=== PATIENT | male | born 1955 | race Caucasian/White ===

== ENCOUNTER 2017-04-26 10:40 | Emergency (ER) | payer MEDICAID, MEDICARE ==
[~2017-04-26] VITALS: Ht 172.7 cm; Wt 86.8 kg
[~2017-04-26 10:40] MED LIST: CALC-141 PO; FENT1PAT76 TP; FLUT1DIS IH; LUPRON; MONT10TA6 PO; VENL37.52 PO; ZOLE4VIA IV
[2017-04-26] MEDS ORDERED: SODIUM CHLORIDE FLUSH 10ML SYR IVF ONE (11:30)
[2017-04-26] MEDS ORDERED: ONDANSETRON 2MG/ML, 2ML IVPush ONE (11:30)
[2017-04-26] MEDS ORDERED: SODIUM CHLORIDE 0.9% 1,000ML IVBOLUS ONE (11:30)
[2017-04-26 11:42] LABS: INTERNATIONAL NORMALIZED RATIO 0.95 (0.93-1.1); PROTHROMBIN TIME 9.9 Seconds (9.6-11.5)
[2017-04-26 11:46] LABS: ALBUMIN 3.9 g/dL (3.4-5.0); ANION GAP 8 mmol/L (5-15); CALCIUM 8.6 mg/dL (8.5-10.1); CHLORIDE 107 mmol/L (98-107)
[2017-04-26 11:50] LABS: ALANINE AMINOTRANSFERASE 16 U/L (12-78); ALKALINE PHOSPHATASE 110 U/L (45-117); BILIRUBIN,TOTAL 0.3 mg/dL (0.2-1.0); CREATININE 0.87 mg/dL (0.7-1.3); TOTAL PROTEIN 8.3 g/dL (6.4-8.2)
[2017-04-26 11:55] LABS: MEAN CORPUSCULAR HGB CONC 34.4 g/dL (33.2-36.2); MEAN PLATELET VOLUME 6.8 fL (7.4-10.4); PLATELET COUNT 140 x10^3/uL (130-400); RED BLOOD COUNT 2.81 x10^6/uL (4.38-5.82); RED CELL DISTRIBUTION WIDTH 15.4 % (9.4-14.8)
[2017-04-26 12:26] LABS: MD YES
[2017-04-26 12:40] LABS: BANDS%(MANUAL) 28 % (0-7); BASOS#(MANUAL) 0.04 x10^3/uL (0-0.1); BASOS% (MANUAL) 3 % (0-1); EOS#(MANUAL) 0.01 x10^3/uL (0.0-0.4); EOS% (MANUAL) 1 % (1-7); METAMYELOCYTES# (MANUAL) 0.01 x10^3/uL (0-0); METAMYELOCYTES% (MANUAL) 1 % (0-1); MONOS% (MANUAL) 8 % (2-9); REACTIVE LYMPHS # (MANUAL) 0.03 x10^3/uL (0-0); REACTIVE LYMPHS % (MANUAL) 2 % (0-0); SEG#(MANUAL) 0.31 x10^3/uL (1.8-6.8); SEGS% (MANUAL) 24 % (42-75)
[2017-04-26 12:45] LABS: BAND#(MANUAL) 0.38 x10^3/uL; LYMPH#(MANUAL) 0.43 x10^3/uL (1-3.4); LYMPHS% (MANUAL) 33 % (22-44)
[2017-04-26 12:47] LABS: ANISOCYTOSIS 1+; POLYCHROMASIA 1+; STOMATOCYTES 1+; TEAR DROPS 1+
[2017-04-26 12:48] LABS: HYPOCHROMIA 1+
[2017-04-26 12:49] LABS: <PLATELET ESTIMATE> ADEQUATE
[2017-04-26] MEDS ORDERED: HYDR-3237 PO (12:49)
[2017-04-26] MEDS ORDERED: OMEP-110 PO (12:49)
[2017-04-26] MEDS ORDERED: hydromorphone (12:49)
[2017-04-26] MEDS ORDERED: PARO-28 PO (12:49)
[2017-04-26 12:50] LABS: <PLT MORPHOLOGY> NORMAL PLT MORPH
[2017-04-26 13:05] LABS: CULTURE INDICATED? NO; MICROSCOPIC AUTO
[2017-04-26 15:17] VITALS: BP 95/65
[2017-04-26 15:32] VITALS: BP 97/60
[2017-04-26 16:33] VITALS: BP 114/62
== END 2017-04-26 16:41 | disposition home or self-care (01) ==
LOC: ED 16:20
DX: C61 Malignant neoplasm of prostate (principal); C79.51 Secondary malignant neoplasm of bone; D63.0 Anemia in neoplastic disease; D70.9 Neutropenia, unspecified; R79.1 Abnormal coagulation profile; R53.1 Weakness
CPT/HCPCS: 36415; 36430; 71045; 80053; 81001; 83605; 85025; 85610; 86850; 86900; 86923; 87040; 93005; 99285; P9040

== ENCOUNTER 2017-08-11 00:42 | Inpatient (IN) | payer MEDICARE ==
[~2017-08-11] VITALS: Ht 172.7 cm; Wt 89.7 kg
[~2017-08-11 00:42] MED LIST changes: +HYDR-3237 PO; +HYDR-3240 PO; +OMEP-110 PO; +PARO-28 PO; +hydromorphone
[2017-08-11] MEDS ORDERED: PROMETHAZINE 25 MG/ML, 1ML IM STA (01:27)
[2017-08-11] MEDS ORDERED: HYDROmorphone 1 MG/ML, 1ML IV STA (01:27)
[2017-08-11] MEDS ORDERED: HYDROmorphone 2 MG/ML, 1ML ONE ×2 (01:30→03:27)
[2017-08-11] MEDS ORDERED: PROMETHAZINE 25 MG/ML, 1ML ONE (01:30)
[2017-08-11] MEDS ORDERED: SODIUM CHLORIDE FLUSH 10ML SYR IVF ONE (01:30)
[2017-08-11 02:02] LABS: MEAN CORPUSCULAR HEMOGLOBIN 31.4 pg (27.5-34.5); MEAN CORPUSCULAR VOLUME 92.4 fL (81-97); MEAN PLATELET VOLUME 6.8 fL (7.4-10.4); PLATELET COUNT 132 x10^3/uL (130-400); RED BLOOD COUNT 2.47 x10^6/uL (4.38-5.82); RED CELL DISTRIBUTION WIDTH 19.6 % (9.4-14.8)
[2017-08-11 02:09] LABS: ALANINE AMINOTRANSFERASE 21 U/L (12-78); ALBUMIN 3.3 g/dL (3.4-5.0); ANION GAP 6 mmol/L (5-15); CALCIUM 8.9 mg/dL (8.5-10.1); CHLORIDE 105 mmol/L (98-107); CREATININE 0.98 mg/dL (0.7-1.3)
[2017-08-11 02:11] LABS: ALKALINE PHOSPHATASE 114 U/L (45-117); BILIRUBIN,TOTAL 0.2 mg/dL (0.2-1.0); TOTAL PROTEIN 7.6 g/dL (6.4-8.2)
[2017-08-11 02:22] LABS: BASOPHILS # (AUTO) 0.01 x10^3/uL (0-0.1); BASOPHILS % (AUTO) 0 % (0-1); EOSINOPHILS # (AUTO) 0.06 x10^3/uL (0-0.4); EOSINOPHILS % (AUTO) 3 % (1-7); LYMPHOCYTES # (AUTO) 0.61 x10^3/uL (1-3.4); LYMPHOCYTES % (AUTO) 26 % (22-44); MD MORPH REVIEW ONLY; MONOCYTES # (AUTO) 0.34 x10^3/uL (0.2-0.8); MONOCYTES % (AUTO) 14 % (2-9); NEUTROPHILS # (AUTO) 1.37 x10^3/uL (1.8-6.8); NEUTROPHILS % (AUTO) 57 % (42-75)
[2017-08-11 02:24] LABS: ANISOCYTOSIS 1+; POLYCHROMASIA 1+; TEAR DROPS 1+
[2017-08-11 02:26] LABS: <PLATELET ESTIMATE> ADEQUATE; <PLT MORPHOLOGY> NORMAL PLT MORPH
[2017-08-11] MEDS ORDERED: ONDANSETRON 2MG/ML, 2ML IVPush PRN (03:00)
[2017-08-11] MEDS ORDERED: HYDROmorphone 1 MG/ML, 1ML IVPush PRN (03:00)
[2017-08-11 03:28] VITALS: BP 132/84
[2017-08-11 03:54] VITALS: BP 132/84
[2017-08-11] MEDS ORDERED: ZOLPIDEM 5MG TABLET PO PRN (05:30)
[2017-08-11] MEDS ORDERED: BISACODYL 10 MG SUPP PR PRN (05:30)
[2017-08-11] MEDS ORDERED: HYDROcodone/APAP 5/325 TABLET PO PRN (06:00)
[2017-08-11] MEDS ORDERED: IBUPROFEN 200 MG TABLET PO SCH (06:00)
[2017-08-11] MEDS: OxyconTIN ER 10 MG TAB.ER PO SCH ×2 (06:20→17:59)
[2017-08-11] MEDS: ENOXAPARIN 40 MG/0.4 ML SQ SCH (06:22)
[2017-08-11 07:04] VITALS: BP 112/70
[2017-08-11 07:33] LABS: BAND#(MANUAL) 0.14 x10^3/uL; BANDS%(MANUAL) 6 % (0-7); EOS#(MANUAL) 0.02 x10^3/uL (0.0-0.4); EOS% (MANUAL) 1 % (1-7); LYMPH#(MANUAL) 0.58 x10^3/uL (1-3.4); LYMPHS% (MANUAL) 24 % (22-44); MONOS#(MANUAL) 0.34 x10^3/uL (0.3-2.7); MONOS% (MANUAL) 14 % (2-9); SEG#(MANUAL) 1.32 x10^3/uL (1.8-6.8); SEGS% (MANUAL) 55 % (42-75)
[2017-08-11] MEDS ORDERED: OMNIPAQUE 350 MG/ML, 100ML BOTTLE ONE (09:54)
[2017-08-11] MEDS: SENNA/DOCUSATE TABLET PO SCH (11:07)
[2017-08-11] MEDS: OMEPRAZOLE 20 MG CAPSULE.DR PO SCH (11:07)
[2017-08-11] MEDS: MONTELUKAST 10 MG TABLET PO SCH (11:08)
[2017-08-11] MEDS: OXYcodone/APAP 7.5/325MG TABLET PO PRN ×4 (11:19→21:40)
[2017-08-11] MEDS: morphine SULFATE 10 MG/ML, 1ML IVPush PRN ×2 (14:12→16:04)
[2017-08-11 14:47] VITALS: BP 121/69
[2017-08-11] MEDS: DOCUSATE 100 MG CAPSULE PO PRN (18:06)
[2017-08-11 19:20] VITALS: BP 110/68
[2017-08-12 01:19] VITALS: BP 134/71
[2017-08-12] MEDS: morphine SULFATE 10 MG/ML, 1ML IVPush PRN ×4 (01:30→23:12)
[2017-08-12 05:10] VITALS: BP 126/72
[2017-08-12] MEDS ORDERED: ALBUTEROL/IPRATROPIUM 2.5MG/0.5MG, 3 ML ONE (05:30)
[2017-08-12 05:47] LABS: CHLORIDE 101 mmol/L (98-107)
[2017-08-12 05:49] LABS: MEAN CORPUSCULAR HEMOGLOBIN 31.1 pg (27.5-34.5); MEAN CORPUSCULAR HGB CONC 33.6 g/dL (33.2-36.2); MEAN CORPUSCULAR VOLUME 92.4 fL (81-97); MEAN PLATELET VOLUME 6.6 fL (7.4-10.4); PLATELET COUNT 127 x10^3/uL (130-400); RED BLOOD COUNT 2.45 x10^6/uL (4.38-5.82); RED CELL DISTRIBUTION WIDTH 19.5 % (9.4-14.8)
[2017-08-12] MEDS: ENOXAPARIN 40 MG/0.4 ML SQ SCH (05:51)
[2017-08-12] MEDS: OxyconTIN ER 10 MG TAB.ER PO SCH (05:51)
[2017-08-12 05:56] LABS: ANION GAP 7 mmol/L (5-15); CALCIUM 9.3 mg/dL (8.5-10.1); CREATININE 0.71 mg/dL (0.7-1.3)
[2017-08-12 06:14] LABS: MD YES
[2017-08-12 06:18] LABS: BAND#(MANUAL) 0.17 x10^3/uL; BANDS%(MANUAL) 8 % (0-7); EOS#(MANUAL) 0.08 x10^3/uL (0.0-0.4); EOS% (MANUAL) 4 % (1-7); LYMPH#(MANUAL) 0.69 x10^3/uL (1-3.4); LYMPHS% (MANUAL) 33 % (22-44); METAMYELOCYTES# (MANUAL) 0.04 x10^3/uL (0-0); METAMYELOCYTES% (MANUAL) 2 % (0-1); MONOS#(MANUAL) 0.17 x10^3/uL (0.3-2.7); MONOS% (MANUAL) 8 % (2-9); MYELOCYTES# (MANUAL) 0.06 x10^3/uL (0-0); MYELOCYTES% (MANUAL) 3 % (0-0); SEG#(MANUAL) 0.88 x10^3/uL (1.8-6.8); SEGS% (MANUAL) 42 % (42-75)
[2017-08-12 06:19] LABS: <PLATELET ESTIMATE> DECREASED; <PLT MORPHOLOGY> NORMAL PLT MORPH; ANISOCYTOSIS 1+; POLYCHROMASIA 1+; TEAR DROPS 1+
[2017-08-12 06:50] VITALS: BP 130/65
[2017-08-12 06:56] VITALS: BP 117/70
[2017-08-12] MEDS: ALBUTEROL/IPRATROPIUM 2.5MG/0.5MG, 3 ML NPPB SCH ×4 (07:00→20:00)
[2017-08-12] MEDS: OXYcodone/APAP 7.5/325MG TABLET PO PRN ×3 (08:03→19:45)
[2017-08-12] MEDS: SENNA/DOCUSATE TABLET PO SCH (08:12)
[2017-08-12] MEDS: MONTELUKAST 10 MG TABLET PO SCH ×2 (08:12→08:14)
[2017-08-12] MEDS: OMEPRAZOLE 20 MG CAPSULE.DR PO SCH (08:12)
[2017-08-12] MEDS ORDERED: POLYETHYLENE GLYCOL 17 GM PACKET PO ONE (09:30)
[2017-08-12] MEDS ORDERED: OxyconTIN ER 10 MG TAB.ER PO ONE (10:00)
[2017-08-12 12:24] VITALS: BP 111/72
[2017-08-12] MEDS ORDERED: DEXAMETHASONE 4 MG TABLET PO SCH (18:00)
[2017-08-12] MEDS ORDERED: OxyconTIN ER 20 MG TAB.ER PO SCH (18:00)
[2017-08-12 18:55] VITALS: BP 117/71
[2017-08-12] MEDS: DOCUSATE 100 MG CAPSULE PO PRN (19:45)
[2017-08-12] MEDS: ONDANSETRON ODT 4 MG PO PRN (19:45)
[2017-08-12] MEDS ORDERED: MORPHINE SULFATE 4 MG/ML, 1ML ONE (23:57)
[2017-08-13] MEDS: morphine SULFATE 10 MG/ML, 1ML IVPush PRN (00:01)
[2017-08-13 01:46] VITALS: BP 119/74
[2017-08-13 06:42] VITALS: BP 117/64
[2017-08-13] MEDS: ALBUTEROL/IPRATROPIUM 2.5MG/0.5MG, 3 ML NPPB SCH (07:20)
[2017-08-13] MEDS: ENOXAPARIN 40 MG/0.4 ML SQ SCH ×2 (08:10→12:30)
[2017-08-13] MEDS: DEXAMETHASONE 4 MG TABLET PO SCH ×2 (08:11→20:16)
[2017-08-13] MEDS: DOCUSATE 100 MG CAPSULE PO PRN ×2 (08:11→20:17)
[2017-08-13] MEDS: SENNA/DOCUSATE TABLET PO SCH (08:11)
[2017-08-13] MEDS: OMEPRAZOLE 20 MG CAPSULE.DR PO SCH (08:11)
[2017-08-13] MEDS: OxyconTIN ER 20 MG TAB.ER PO SCH ×2 (08:11→20:17)
[2017-08-13] MEDS: MONTELUKAST 10 MG TABLET PO SCH (08:20)
[2017-08-13] MEDS: OXYcodone/APAP 7.5/325MG TABLET PO SCH ×4 (08:29→22:36)
[2017-08-13] MEDS ORDERED: ALBUTEROL/IPRATROPIUM 2.5MG/0.5MG, 3 ML NPPB PRN (09:00)
[2017-08-13 09:10] LABS: ANION GAP 5 mmol/L (5-15); CALCIUM 9.5 mg/dL (8.5-10.1); CHLORIDE 100 mmol/L (98-107); CREATININE 0.82 mg/dL (0.7-1.3)
[2017-08-13 09:59] LABS: MEAN CORPUSCULAR HEMOGLOBIN 31.6 pg (27.5-34.5); MEAN CORPUSCULAR HGB CONC 34.4 g/dL (33.2-36.2); MEAN CORPUSCULAR VOLUME 91.9 fL (81-97); MEAN PLATELET VOLUME 6.5 fL (7.4-10.4); PLATELET COUNT 147 x10^3/uL (130-400); RED CELL DISTRIBUTION WIDTH 20.2 % (9.4-14.8)
[2017-08-13 10:01] LABS: MD YES
[2017-08-13 10:05] LABS: BAND#(MANUAL) 0.21 x10^3/uL; BANDS%(MANUAL) 11 % (0-7); EOS#(MANUAL) 0.04 x10^3/uL (0.0-0.4); EOS% (MANUAL) 2 % (1-7); LYMPH#(MANUAL) 0.51 x10^3/uL (1-3.4); LYMPHS% (MANUAL) 27 % (22-44); MONOS#(MANUAL) 0.17 x10^3/uL (0.3-2.7); MONOS% (MANUAL) 9 % (2-9)
[2017-08-13 10:07] LABS: METAMYELOCYTES# (MANUAL) 0.02 x10^3/uL (0-0); METAMYELOCYTES% (MANUAL) 1 % (0-1); SEG#(MANUAL) 0.95 x10^3/uL (1.8-6.8); SEGS% (MANUAL) 50 % (42-75)
[2017-08-13 10:08] LABS: ANISOCYTOSIS 1+; POLYCHROMASIA 1+
[2017-08-13 10:09] LABS: <PLATELET ESTIMATE> ADEQUATE; <PLT MORPHOLOGY> NORMAL PLT MORPH
[2017-08-13] MEDS: ONDANSETRON ODT 4 MG PO PRN ×2 (11:10→19:13)
[2017-08-13] MEDS ORDERED: METHYLNALTREXONE 12 MG/0.6 ML SQ ONE (11:30)
[2017-08-13 12:21] VITALS: BP 116/60
[2017-08-13 19:38] VITALS: BP 121/68
[2017-08-14 03:13] VITALS: BP 122/67
[2017-08-14] MEDS: OXYcodone/APAP 7.5/325MG TABLET PO SCH ×2 (03:13→08:26)
[2017-08-14] MEDS: ONDANSETRON ODT 4 MG PO PRN (06:45)
[2017-08-14] MEDS ORDERED: ONDA4TAB13 PO (06:59)
[2017-08-14] MEDS ORDERED: OXYC20TA42 PO (06:59)
[2017-08-14] MEDS ORDERED: DEXA4TAB66 PO (06:59)
[2017-08-14] MEDS ORDERED: OXYC1TAB8 PO (06:59)
[2017-08-14 07:00] VITALS: BP 114/73
[2017-08-14] MEDS ORDERED: OxyconTIN ER 10 MG TAB.ER ONE (08:22)
[2017-08-14] MEDS: OxyconTIN ER 20 MG TAB.ER PO SCH (08:26)
[2017-08-14] MEDS: DEXAMETHASONE 4 MG TABLET PO SCH (08:26)
[2017-08-14] MEDS: MONTELUKAST 10 MG TABLET PO SCH (08:26)
[2017-08-14] MEDS: OMEPRAZOLE 20 MG CAPSULE.DR PO SCH (08:26)
[2017-08-14] MEDS: SENNA/DOCUSATE TABLET PO SCH (08:26)
[2017-08-14] MEDS: ENOXAPARIN 40 MG/0.4 ML SQ SCH (08:29)
[2017-08-14] MEDS ORDERED: LACTULOSE 20 GM/30 ML UDC PO ONE (09:00)
== END 2017-08-14 11:16 | disposition home or self-care (01) | DRG 947 ==
LOC: ED 02:37 → EDIP 02:49 → 3NW 03:18
PROVIDERS: ADMIT Family Medicine; ATTEND Family Medicine
DX: G89.3 Neoplasm related pain (acute) (chronic) (principal); D61.810 Antineoplastic chemotherapy induced pancytopenia; C79.51 Secondary malignant neoplasm of bone; C61 Malignant neoplasm of prostate; D63.0 Anemia in neoplastic disease; D63.8 Anemia in other chronic diseases classified elsewhere; T40.2X5A Adverse effect of other opioids, initial encounter; K59.03 Drug induced constipation; K59.09 Other constipation
CPT/HCPCS: 36415; 72132; 74177; 80048; 80053; 85025; 86850; 86900; 94640; 96372; 96374; J1170; J1650; J2550; J7620; Q0162; Q9967; J2270

== ENCOUNTER → 2018-02-28 | Outpatient (CLI) | payer MEDICARE ==
[~2018-02-28] MED LIST changes: +DEXA4TAB66 PO; +OMNIPAQUE 350 MG/ML, 100ML BOTTLE ONE; +ONDA4TAB13 PO; +OXYC1TAB8 PO; +OXYC20TA42 PO
== END | disposition home or self-care (01) ==
LOC: RAD 12:14
PROVIDERS: ATTEND Internal Medicine Gastroenterology
DX: K62.89 Other specified diseases of anus and rectum (principal)
CPT/HCPCS: 71260; 74177; Q9967

== ENCOUNTER 2018-07-23 14:35 | Outpatient (CLI) | payer MEDICARE ==
[~2018-07-23 14:35] MED LIST changes: -OMNIPAQUE 350 MG/ML, 100ML BOTTLE ONE
[2018-07-23 15:41] LABS: ALANINE AMINOTRANSFERASE 14 U/L (12-78); ALBUMIN 3.9 g/dL (3.4-5.0); ANION GAP 6 mmol/L (5-15); BASOPHILS # (AUTO) 0.01 x10^3/uL (0-0.1); BASOPHILS % (AUTO) 0 % (0-1); CALCIUM 8.9 mg/dL (8.5-10.1); CHLORIDE 111 mmol/L (98-107); CREATININE 0.84 mg/dL (0.7-1.3); EOSINOPHILS # (AUTO) 0.08 x10^3/uL (0-0.4); EOSINOPHILS % (AUTO) 3 % (1-7); LYMPHOCYTES # (AUTO) 0.89 x10^3/uL (1-3.4); LYMPHOCYTES % (AUTO) 28 % (22-44); MD NO; MEAN CORPUSCULAR HEMOGLOBIN 30.7 pg (27.5-34.5); MEAN CORPUSCULAR HGB CONC 32.8 g/dL (33.2-36.2); MEAN CORPUSCULAR VOLUME 93.7 fL (81-97); MEAN PLATELET VOLUME 5.9 fL (7.4-10.4); MONOCYTES % (AUTO) 10 % (2-9); NEUTROPHILS # (AUTO) 1.85 x10^3/uL (1.8-6.8); NEUTROPHILS % (AUTO) 59 % (42-75); PLATELET COUNT 308 x10^3/uL (130-400); RED BLOOD COUNT 3.38 x10^6/uL (4.38-5.82); RED CELL DISTRIBUTION WIDTH 15.8 % (9.4-14.8)
[2018-07-23 15:44] LABS: ALKALINE PHOSPHATASE 238 U/L (45-117); BILIRUBIN,TOTAL 0.2 mg/dL (0.2-1.0); TOTAL PROTEIN 7.9 g/dL (6.4-8.2)
[2018-07-23] MEDS ORDERED: ABIR250T PO (15:59)
[2018-07-23] MEDS ORDERED: MONT10TA9 PO (15:59)
[2018-07-23] MEDS ORDERED: OMEP20TA62 PO (15:59)
[2018-07-23] MEDS ORDERED: CALC-558 PO (15:59)
[2018-07-23] MEDS ORDERED: PARO20TA4 PO (15:59)
[2018-07-23] MEDS ORDERED: PRED5TAB PO (15:59)
== END 2018-07-23 23:59 | disposition home or self-care (01) ==
LOC: STAR 14:35
PROVIDERS: ATTEND Surgery
DX: Z01.818 Encounter for other preprocedural examination (principal); C20 Malignant neoplasm of rectum
CPT/HCPCS: 36415; 80053; 85025; 93005

== ENCOUNTER 2018-07-30 06:04 | Inpatient (IN) | payer MEDICARE ==
[~2018-07-30] VITALS: Ht 172.7 cm; Wt 88.8 kg
[~2018-07-30 06:04] MED LIST changes: +ABIR250T PO; +CALC-558 PO; +MONT10TA9 PO; +OMEP20TA62 PO; +PARO20TA4 PO; +PRED5TAB PO
[2018-07-30] MEDS ORDERED: LACTATED RINGERS 1,000 ML IV SCH (06:58)
[2018-07-30] MEDS ORDERED: BUPIVACAINE/PF 0.5% ONE (07:20)
[2018-07-30] MEDS ORDERED: INDOCYANINE GREEN 25 MG VIAL ONE (07:21)
[2018-07-30 07:23] VITALS: BP 136/74
[2018-07-30] MEDS ORDERED: SCOPOLAMINE PATCH, 1.5MG PATCH.TD72 TD ONE (07:40)
[2018-07-30] MEDS ORDERED: GABAPENTIN 300 MG CAPSULE ONE (07:40)
[2018-07-30] MEDS ORDERED: MIDAZOLAM 1 MG/ML, 2ML ONE (07:51)
[2018-07-30] MEDS ORDERED: FENTANYL PF 250 MCG/5ML ONE (07:51)
[2018-07-30] MEDS ORDERED: PROPOFOL 10 MG/ML, 20ML ONE (07:52)
[2018-07-30] MEDS ORDERED: LIDOCAINE-MPF 2% ,5ML ONE (07:52)
[2018-07-30] MEDS ORDERED: ROCURONIUM 10MG/ML,5ML ONE (07:52)
[2018-07-30] MEDS ORDERED: ROPIvacaine/PF 0.5%, 30 ML ONE ×2 (07:55)
[2018-07-30] MEDS ORDERED: CEFOTETAN 2 GM ONE (08:22)
[2018-07-30] MEDS ORDERED: PHENYLEPHRINE 10 MG/ML ONE (08:22)
[2018-07-30] MEDS ORDERED: DEXAMETHASONE 4 MG/ML, 1ML ONE ×2 (08:46)
[2018-07-30] MEDS ORDERED: ONDANSETRON 2MG/ML, 2ML ONE ×2 (10:12)
[2018-07-30] MEDS ORDERED: ALBUTEROL SULFATE 2.5 MG/3 ML NPPB PRN (10:30)
[2018-07-30] MEDS ORDERED: MEPERIDINE/PF 25MG/0.5ML IVPush PRN (10:30)
[2018-07-30] MEDS ORDERED: FENTANYL PF 100 MCG/2ML IV PRN (10:30)
[2018-07-30] MEDS ORDERED: OXYcodone 5 MG/5 ML ORAL.SOL UDC PO PRN (10:30)
[2018-07-30] MEDS ORDERED: hydrALAzine 20 MG/ML, 1ML IV PRN (10:30)
[2018-07-30] MEDS ORDERED: PROMETHAZINE 25 MG/ML, 1ML IV PRN (10:30)
[2018-07-30] MEDS ORDERED: HALOPERIDOL 5 MG/ML IV PRN (10:30)
[2018-07-30] MEDS ORDERED: MEPERIDINE/PF 50 MG/ML ONE (10:38)
[2018-07-30] MEDS ORDERED: SUGAMMADEX 200 MG/2 ML IVPush ONE (10:51)
[2018-07-30] MEDS ORDERED: OXYcodone 5 MG/5 ML ORAL.SOL UDC ONE (11:30)
[2018-07-30] MEDS ORDERED: HYDROmorphone 2 MG/ML, 1ML ONE (11:30)
[2018-07-30] MEDS: HYDROmorphone 2 MG/ML, 1ML IVPush PRN ×3 (11:35→12:13)
[2018-07-30 14:00] VITALS: BP 136/72
[2018-07-30] MEDS ORDERED: OXYcodone IR 5MG TABLET PO PRN (14:30)
[2018-07-30] MEDS ORDERED: SCOPOLAMINE PATCH, 1.5MG PATCH.TD72 TD PRN (15:00)
[2018-07-30] MEDS ORDERED: CALCIUM CARBONATE 500 MG TAB.CHEW PO PRN (15:00)
[2018-07-30] MEDS ORDERED: HALOPERIDOL 5 MG/ML IVPush PRN (15:00)
[2018-07-30] MEDS ORDERED: ONDANSETRON 2MG/ML, 2ML IV PRN (15:00)
[2018-07-30] MEDS ORDERED: DEXAMETHASONE 4 MG/ML, 1ML IVPush PRN (15:00)
[2018-07-30] MEDS ORDERED: LORazepam 1MG TABLET PO PRN (15:00)
[2018-07-30] MEDS ORDERED: DIPHENHYDRAMINE 50 MG/ML, 1ML IVPush PRN (15:00)
[2018-07-30] MEDS ORDERED: LORazepam 2 MG/ML, 1ML IVPush PRN (15:00)
[2018-07-30] MEDS ORDERED: DIPHENHYDRAMINE 25 MG CAPSULE PO PRN (15:00)
[2018-07-30] MEDS ORDERED: MORPHINE SULFATE 4 MG/ML, 1ML IVPush PRN (15:00)
[2018-07-30] MEDS: IBUPROFEN 800 MG TABLET PO SCH ×2 (15:30→20:56)
[2018-07-30] MEDS: ACETAMINOPHEN 500 MG TABLET PO SCH ×2 (15:30→20:56)
[2018-07-30] MEDS: D5%-0.45NACL+KCL 20MEQ 1,000 ML IV SCH (15:30)
[2018-07-30 19:10] VITALS: BP 134/79
[2018-07-30] MEDS ORDERED: TRAZODONE 50MG TABLET PO PRN (21:00)
[2018-07-30 23:50] VITALS: BP 112/67
[2018-07-31] MEDS: ACETAMINOPHEN 500 MG TABLET PO SCH ×4 (03:05→20:55)
[2018-07-31 03:27] VITALS: BP 110/57
[2018-07-31 03:48] LABS: BASOPHILS % (AUTO) 0 % (0-1); EOSINOPHILS % (AUTO) 0 % (1-7); LYMPHOCYTES # (AUTO) 0.63 x10^3/uL (1-3.4); LYMPHOCYTES % (AUTO) 15 % (22-44); MD NO; MEAN CORPUSCULAR HEMOGLOBIN 30.5 pg (27.5-34.5); MEAN CORPUSCULAR HGB CONC 32.1 g/dL (33.2-36.2); MEAN CORPUSCULAR VOLUME 94.9 fL (81-97); MEAN PLATELET VOLUME 6.2 fL (7.4-10.4); MONOCYTES # (AUTO) 0.34 x10^3/uL (0.2-0.8); MONOCYTES % (AUTO) 8 % (2-9); NEUTROPHILS # (AUTO) 3.23 x10^3/uL (1.8-6.8); NEUTROPHILS % (AUTO) 77 % (42-75); PLATELET COUNT 269 x10^3/uL (130-400); RED BLOOD COUNT 3.03 x10^6/uL (4.38-5.82); RED CELL DISTRIBUTION WIDTH 15.1 % (9.4-14.8)
[2018-07-31 03:51] LABS: ANION GAP 6 mmol/L (5-15); CALCIUM 8.3 mg/dL (8.5-10.1); CHLORIDE 109 mmol/L (98-107); CREATININE 1.02 mg/dL (0.7-1.3)
[2018-07-31] MEDS: D5%-0.45NACL+KCL 20MEQ 1,000 ML IV SCH ×2 (05:18→19:36)
[2018-07-31] MEDS: ABIRATERONE ACETATE 500 MG HOMEMEDPO SCH (06:40)
[2018-07-31] MEDS: OMEPRAZOLE 20 MG CAPSULE.DR PO SCH (07:23)
[2018-07-31] MEDS: IBUPROFEN 800 MG TABLET PO SCH ×3 (07:23→20:55)
[2018-07-31] MEDS: MONTELUKAST 10 MG TABLET PO SCH (07:23)
[2018-07-31] MEDS: PAROXETINE 20 MG TABLET PO SCH (07:23)
[2018-07-31 07:27] VITALS: BP 137/75
[2018-07-31] MEDS: ENOXAPARIN 40 MG/0.4 ML SQ SCH (12:23)
[2018-07-31 12:26] VITALS: BP 130/58
[2018-07-31 19:16] VITALS: BP 130/65
[2018-08-01 00:56] VITALS: BP 128/68
[2018-08-01] MEDS: ACETAMINOPHEN 500 MG TABLET PO SCH ×2 (02:55→08:33)
[2018-08-01 03:15] LABS: BASOPHILS # (AUTO) 0.02 x10^3/uL (0-0.1); BASOPHILS % (AUTO) 1 % (0-1); EOSINOPHILS # (AUTO) 0.07 x10^3/uL (0-0.4); EOSINOPHILS % (AUTO) 2 % (1-7); LYMPHOCYTES # (AUTO) 1.03 x10^3/uL (1-3.4); LYMPHOCYTES % (AUTO) 29 % (22-44); MD NO; MEAN CORPUSCULAR HEMOGLOBIN 31.3 pg (27.5-34.5); MEAN CORPUSCULAR HGB CONC 32.7 g/dL (33.2-36.2); MEAN CORPUSCULAR VOLUME 95.8 fL (81-97); MEAN PLATELET VOLUME 6.4 fL (7.4-10.4); MONOCYTES % (AUTO) 8 % (2-9); NEUTROPHILS # (AUTO) 2.17 x10^3/uL (1.8-6.8); NEUTROPHILS % (AUTO) 61 % (42-75); PLATELET COUNT 261 x10^3/uL (130-400); RED BLOOD COUNT 2.96 x10^6/uL (4.38-5.82); RED CELL DISTRIBUTION WIDTH 15.2 % (9.4-14.8)
[2018-08-01 03:21] LABS: ANION GAP 5 mmol/L (5-15); CALCIUM 8.3 mg/dL (8.5-10.1); CHLORIDE 112 mmol/L (98-107); CREATININE 0.78 mg/dL (0.7-1.3)
[2018-08-01] MEDS: ABIRATERONE ACETATE 500 MG HOMEMEDPO SCH (06:28)
[2018-08-01 07:54] VITALS: BP 136/67
[2018-08-01] MEDS: PAROXETINE 20 MG TABLET PO SCH (08:33)
[2018-08-01] MEDS: MONTELUKAST 10 MG TABLET PO SCH (08:33)
[2018-08-01] MEDS: IBUPROFEN 800 MG TABLET PO SCH (08:33)
[2018-08-01] MEDS: OMEPRAZOLE 20 MG CAPSULE.DR PO SCH (08:33)
[2018-08-01] MEDS: D5%-0.45NACL+KCL 20MEQ 1,000 ML IV SCH (08:34)
[2018-08-01] MEDS: ENOXAPARIN 40 MG/0.4 ML SQ SCH (10:28)
[2018-08-01 10:37] VITALS: BP 145/69
[2018-08-01] MEDS ORDERED: OXYC-302 PO (12:00)
[2018-08-01] MEDS ORDERED: ENOX40SY4 SQ (12:01)
== END 2018-08-01 14:22 | disposition home health service (06) | DRG 330 ==
LOC: ORIP 06:04 → 4NOR 14:12 → DCLOUNGE 08-01 13:58
PROVIDERS: ADMIT Surgery; ATTEND Surgery
PROC: 0D1B4Z4 Bypass Ileum to Cutaneous, Percutaneous Endoscopic Approach (ICD-10-PCS; 2018-07-30)
PROC: 3E0T3BZ Introduction of Anesthetic Agent into Peripheral Nerves and Plexi, Percutaneous Approach (ICD-10-PCS; 2018-07-30)
PROC: 8E0W4CZ Robotic Assisted Procedure of Trunk Region, Percutaneous Endoscopic Approach (ICD-10-PCS; 2018-07-30)
PROC: 0DBP4ZZ Excision of Rectum, Percutaneous Endoscopic Approach (ICD-10-PCS; principal; 2018-07-30 08:00)
DX: C78.5 Secondary malignant neoplasm of large intestine and rectum (principal); C79.51 Secondary malignant neoplasm of bone; C61 Malignant neoplasm of prostate; J45.909 Unspecified asthma, uncomplicated; K21.9 Gastro-esophageal reflux disease without esophagitis; F32.9 Major depressive disorder, single episode, unspecified; Z83.3 Family history of diabetes mellitus; Z82.49 Family history of ischemic heart disease and other diseases of the circulatory system; Z80.1 Family history of malignant neoplasm of trachea, bronchus and lung
CPT/HCPCS: 36415; 80048; 85025; 86850; 86900; 88305; 88309; C1729; G0378; J1100; J1170; J1650; J2175; J2250; J2405; J2704; J2795; J3010; J2370; J3480; J3490; J7120; J7512

== ENCOUNTER → 2018-08-07 | Outpatient (CLI) | payer MEDICARE ==
[~2018-08-07] MED LIST changes: +ENOX40SY4 SQ; +OMNIPAQUE 350 MG/ML, 100ML BOTTLE ONE; +OXYC-302 PO
== END | disposition home or self-care (01) ==
LOC: PETCFH 08:01
PROVIDERS: ATTEND Specialist
DX: C41.9 Malignant neoplasm of bone and articular cartilage, unspecified (principal); C61 Malignant neoplasm of prostate; C21.8 Malignant neoplasm of overlapping sites of rectum, anus and anal canal
CPT/HCPCS: 71260; 74177; 78306; A9503; Q9967

== ENCOUNTER → 2018-08-08 | Outpatient (CLI) | payer MEDICARE ==
[~2018-08-08] MED LIST changes: +GADOBUTROL 10 MMOL/10 ML PFS ONE; -OMNIPAQUE 350 MG/ML, 100ML BOTTLE ONE
== END | disposition home or self-care (01) ==
LOC: CFH 09:37
PROVIDERS: ATTEND Specialist
DX: C79.51 Secondary malignant neoplasm of bone (principal); M47.816 Spondylosis without myelopathy or radiculopathy, lumbar region; C61 Malignant neoplasm of prostate; C21.8 Malignant neoplasm of overlapping sites of rectum, anus and anal canal
CPT/HCPCS: 72158; A9585

== ENCOUNTER 2018-08-20 14:27 | Emergency (ER) | payer MEDICARE ==
[~2018-08-20] VITALS: Ht 172.7 cm; Wt 82.3 kg
[~2018-08-20 14:27] MED LIST changes: -GADOBUTROL 10 MMOL/10 ML PFS ONE
--- NOTE | 2018-08-20 15:05 | NUR ---
PT TO ROOM FROM LOBBY
[2018-08-20] MEDS ORDERED: SODIUM CHLORIDE FLUSH 10ML SYR IVF ONE (15:30)
--- NOTE | 2018-08-20 15:39 | NUR ---
PT STATES HE FRACTURE HIS RIGHT HIP 2 WEEKS AGO AND HAS GOT VARIOUS IMAGES. HE STATES HE IS HERE TODAY FOR A SECOND OPINION ON HIS HIP. FAMILY PRESENT. HX OF BONE CANCER, RECENT RADIATION TO HIS RIGHT HIP, COLON CANCER W COLOSTOMY. PT IS RESTING COMFORTABLE. VS STABLE. WILL WAIT FOR FURTHER ORDERS
[2018-08-20 15:55] LABS: BASOPHILS # (AUTO) 0.01 x10^3/uL (0-0.1); BASOPHILS % (AUTO) 0 % (0-1); EOSINOPHILS # (AUTO) 0.09 x10^3/uL (0-0.4); EOSINOPHILS % (AUTO) 3 % (1-7); LYMPHOCYTES # (AUTO) 0.85 x10^3/uL (1-3.4); LYMPHOCYTES % (AUTO) 25 % (22-44); MD NO; MEAN CORPUSCULAR HEMOGLOBIN 31.1 pg (27.5-34.5); MEAN CORPUSCULAR HGB CONC 33.5 g/dL (33.2-36.2); MEAN PLATELET VOLUME 6.3 fL (7.4-10.4); MONOCYTES # (AUTO) 0.34 x10^3/uL (0.2-0.8); MONOCYTES % (AUTO) 10 % (2-9); NEUTROPHILS # (AUTO) 2.07 x10^3/uL (1.8-6.8); NEUTROPHILS % (AUTO) 62 % (42-75); PLATELET COUNT 338 x10^3/uL (130-400); RED BLOOD COUNT 3.32 x10^6/uL (4.38-5.82); RED CELL DISTRIBUTION WIDTH 14.6 % (9.4-14.8)
[2018-08-20 15:56] LABS: ALANINE AMINOTRANSFERASE 19 U/L (12-78); ALBUMIN 3.8 g/dL (3.4-5.0); ANION GAP 7 mmol/L (5-15); CHLORIDE 107 mmol/L (98-107); CREATININE 0.88 mg/dL (0.7-1.3)
[2018-08-20 15:58] LABS: ALKALINE PHOSPHATASE 220 U/L (45-117); BILIRUBIN,TOTAL 0.2 mg/dL (0.2-1.0); TOTAL PROTEIN 8.4 g/dL (6.4-8.2)
[2018-08-20 16:10] LABS: INTERNATIONAL NORMALIZED RATIO 0.94 (0.93-1.1); PROTHROMBIN TIME 9.9 Seconds (9.6-11.5)
[2018-08-20 16:43] VITALS: BP 114/86
--- NOTE | 2018-08-20 16:44 | NUR ---
Patient/Caregiver given discharge instructions and they have confirmed that they understand the instructions. Patient ambulatory with steady gait.
== END 2018-08-20 16:45 | disposition home or self-care (01) ==
LOC: ED 16:15
DX: M84.459A Pathological fracture, hip, unspecified, initial encounter for fracture (principal)
CPT/HCPCS: 36415; 80053; 85025; 85610; 85730; 99283

== ENCOUNTER 2018-09-24 20:24 | Observation (INO) | payer MEDICARE ==
[~2018-09-24] VITALS: Ht 172.7 cm; Wt 82.5 kg
[2018-09-25 13:17] VITALS: BP 112/66
== END 2018-09-25 18:00 | disposition home or self-care (01) ==
LOC: ED 21:27 → EDIP 22:49 → INTOOBSV 22:49 → 3NW 23:33
PROVIDERS: ADMIT Internal Medicine; ATTEND Internal Medicine
DX: I95.1 Orthostatic hypotension (principal); N17.0 Acute kidney failure with tubular necrosis; E86.0 Dehydration; D72.829 Elevated white blood cell count, unspecified; D64.9 Anemia, unspecified; C18.9 Malignant neoplasm of colon, unspecified; C61 Malignant neoplasm of prostate; Z79.899 Other long term (current) drug therapy
CPT/HCPCS: 36415; 71045; 76770; 80053; 80069; 81001; 82436; 82570; 83036; 83735; 84133; 84300; 84484; 85025; 86850; 86900; 87086; 93005; 96360; 96361; 96372; 99284; G0378; J1644; J7030; J7512

== ENCOUNTER → 2019-01-09 | Outpatient (CLI) | payer MEDICARE ==
[~2019-01-09] MED LIST changes: +FERR-51 PO; +IRON; +LOPE2CAP PO; +OMNIPAQUE 350 MG/ML, 100ML BOTTLE ONE
== END | disposition home or self-care (01) ==
LOC: RAD 11:02
PROVIDERS: ATTEND Specialist
DX: C79.51 Secondary malignant neoplasm of bone (principal); C61 Malignant neoplasm of prostate; C20 Malignant neoplasm of rectum; Z85.46 Personal history of malignant neoplasm of prostate
CPT/HCPCS: 71260; 74177; 78306; A9503; Q9967

== ENCOUNTER → 2019-04-21 | Outpatient (CLI) | payer MEDICARE ==
[~2019-04-21] MED LIST changes: +GADOTERATE 10 MMOL/20 ML SYR ONE; +MONT10TA11 PO; -MONT10TA9 PO; -OMNIPAQUE 350 MG/ML, 100ML BOTTLE ONE
== END | disposition home or self-care (01) ==
LOC: RAD 10:56
PROVIDERS: ATTEND Specialist
DX: C79.51 Secondary malignant neoplasm of bone (principal); C77.0 Secondary and unspecified malignant neoplasm of lymph nodes of head, face and neck; C61 Malignant neoplasm of prostate; C20 Malignant neoplasm of rectum; R22.1 Localized swelling, mass and lump, neck; K42.9 Umbilical hernia without obstruction or gangrene; M84.48XA Pathological fracture, other site, initial encounter for fracture; N40.0 Benign prostatic hyperplasia without lower urinary tract symptoms; I70.0 Atherosclerosis of aorta; M51.36 Other intervertebral disc degeneration, lumbar region; M48.061 Spinal stenosis, lumbar region without neurogenic claudication
CPT/HCPCS: 71260; 72158; 74177; 78306; A9503; A9575

== ENCOUNTER 2019-05-07 08:15 | Day surgery (SDC) | payer MEDICARE ==
[~2019-05-07] VITALS: Ht 172.7 cm; Wt 82.2 kg
[~2019-05-07 08:15] MED LIST changes: -GADOTERATE 10 MMOL/20 ML SYR ONE
[2019-05-07] MEDS ORDERED: SODIUM CHLORIDE 0.9% 1,000 ML IV SCH (08:32)
[2019-05-07] MEDS ORDERED: CEFAZOLIN PMX 1GM/50ML 50 ML IV STA (08:32)
[2019-05-07 08:53] VITALS: BP 130/83
[2019-05-07] MEDS ORDERED: PLEASE ENTER HEIGHT AND WEIGHT MC SCH (09:00)
[2019-05-07] MEDS ORDERED: LIDOCAINE 1%, 20ML ONE (11:03)
[2019-05-07] MEDS ORDERED: NALOXONE 1 MG/ML, 2ML ONE (11:20)
[2019-05-07] MEDS ORDERED: MIDAZOLAM 1 MG/ML, 5ML ONE ×2 (11:20)
[2019-05-07] MEDS ORDERED: FENTANYL PF 100 MCG/2ML ONE (11:20)
[2019-05-07] MEDS ORDERED: FLUMAZENIL 0.1 MG/1 ML, 5ML ONE (11:20)
== END 2019-05-07 13:30 | disposition home or self-care (01) ==
LOC: OUT 08:15
PROVIDERS: ATTEND Specialist
DX: C20 Malignant neoplasm of rectum (principal); E78.00 Pure hypercholesterolemia, unspecified; J45.909 Unspecified asthma, uncomplicated; E03.9 Hypothyroidism, unspecified; Z79.899 Other long term (current) drug therapy; Z98.890 Other specified postprocedural states; Z82.49 Family history of ischemic heart disease and other diseases of the circulatory system; Z83.3 Family history of diabetes mellitus; Z80.1 Family history of malignant neoplasm of trachea, bronchus and lung
CPT/HCPCS: 36561; 76937; 77001; 99156; 99157; C1788; J1642; J2250; J3010; J2310

== ENCOUNTER 2019-07-09 10:41 | Outpatient (CLI) | payer MEDICARE ==
[2019-07-09] MEDS ORDERED: OMNIPAQUE 350 MG/ML, 100ML BOTTLE ONE ×2 (13:00)
[2019-08-09] MEDS ORDERED: OMNIPAQUE 350 MG/ML, 100ML BOTTLE ONE (13:00)
== END 2019-07-09 23:59 | disposition home or self-care (01) ==
LOC: RAD 10:41
PROVIDERS: ATTEND Specialist
DX: C79.51 Secondary malignant neoplasm of bone (principal); C61 Malignant neoplasm of prostate; C20 Malignant neoplasm of rectum; R59.0 Localized enlarged lymph nodes; M89.8X8 Other specified disorders of bone, other site; N32.89 Other specified disorders of bladder
CPT/HCPCS: 71260; 74177; 78306; A9503; Q9967

== ENCOUNTER 2019-08-27 09:43 | Outpatient (CLI) | payer MEDICARE ==
[2019-08-27] MEDS ORDERED: OMNIPAQUE 350 MG/ML, 100ML BOTTLE ONE (11:23)
== END 2019-08-27 23:59 | disposition home or self-care (01) ==
LOC: RAD 09:43
PROVIDERS: ATTEND Specialist
DX: C61 Malignant neoplasm of prostate (principal); C20 Malignant neoplasm of rectum; C79.51 Secondary malignant neoplasm of bone; S22.31XD Fracture of one rib, right side, subsequent encounter for fracture with routine healing; R59.1 Generalized enlarged lymph nodes; N32.89 Other specified disorders of bladder; X58.XXXD Exposure to other specified factors, subsequent encounter
CPT/HCPCS: 71260; 74177; 78306; A9503; Q9967

== ENCOUNTER → 2019-12-18 | Outpatient (CLI) | payer MEDICARE ==
[~2019-12-18] MED LIST changes: +OMNIPAQUE 350 MG/ML, 100ML BOTTLE ONE
== END | disposition home or self-care (01) ==
LOC: CFH 08:26
PROVIDERS: ATTEND Specialist
DX: C79.51 Secondary malignant neoplasm of bone (principal); C61 Malignant neoplasm of prostate; C20 Malignant neoplasm of rectum; K43.9 Ventral hernia without obstruction or gangrene; N32.89 Other specified disorders of bladder; R91.1 Solitary pulmonary nodule; R59.9 Enlarged lymph nodes, unspecified
CPT/HCPCS: 71260; 74177; Q9967

== ENCOUNTER → 2019-12-22 | Outpatient (CLI) | payer MEDICARE ==
[~2019-12-22] MED LIST changes: -OMNIPAQUE 350 MG/ML, 100ML BOTTLE ONE
== END | disposition home or self-care (01) ==
LOC: RAD 09:49
PROVIDERS: ATTEND Specialist
DX: C79.51 Secondary malignant neoplasm of bone (principal); C20 Malignant neoplasm of rectum; C61 Malignant neoplasm of prostate
CPT/HCPCS: 78306; A9503

== ENCOUNTER 2019-12-24 18:26 | Emergency (ER) | payer MEDICARE ==
[~2019-12-24] VITALS: Ht 172.7 cm; Wt 86.3 kg
[2019-12-24 19:02] VITALS: BP 136/67
[2019-12-24 19:28] LABS: BASOPHILS % (AUTO) 0 % (0-1); EOSINOPHILS % (AUTO) 1 % (1-7); LYMPHOCYTES % (AUTO) 16 % (22-44); MEAN CORPUSCULAR HEMOGLOBIN 31.8 pg (27.5-34.5); MEAN CORPUSCULAR HGB CONC 32.8 g/dL (33.2-36.2); MONOCYTES % (AUTO) 5 % (2-9); NEUTROPHILS % (AUTO) 77 % (42-75); PLATELET COUNT 296 x10^3/uL (130-400); RED BLOOD COUNT 3.16 x10^6/uL (4.38-5.82); RED CELL DISTRIBUTION WIDTH 18.2 % (9.4-14.8)
[2019-12-24 19:30] LABS: MD NO
[2019-12-24 19:39] LABS: ALANINE AMINOTRANSFERASE 14 U/L (12-78); ALBUMIN 3.8 g/dL (3.4-5.0); ANION GAP 5 mmol/L (5-15); CALCIUM 8.4 mg/dL (8.5-10.1); CHLORIDE 105 mmol/L (98-107); CREATININE 0.96 mg/dL (0.7-1.3)
[2019-12-24 19:41] LABS: ALKALINE PHOSPHATASE 223 U/L (45-117); BILIRUBIN,TOTAL 0.2 mg/dL (0.2-1.0); TOTAL PROTEIN 7.4 g/dL (6.4-8.2)
[2019-12-24 20:03] LABS: MICROSCOPIC INDICATED
--- NOTE | 2019-12-24 20:22 | NUR ---
PT ELOPED FROM LOBBY PER REGISTRATION, CALLED AT THIS TIME, NO ANSWER
== END 2019-12-24 20:24 | disposition home or self-care (01) ==
LOC: ED 20:19
DX: R31.9 Hematuria, unspecified (principal); Z85.46 Personal history of malignant neoplasm of prostate
CPT/HCPCS: 36415; 80053; 81001; 85025; 87086; 99283

== ENCOUNTER 2019-12-25 08:55 | Emergency (ER) | payer MEDICARE ==
[~2019-12-25] VITALS: Ht 172.7 cm; Wt 85.6 kg
[2019-12-25 09:31] LABS: BASOPHILS % (AUTO) 0 % (0-1); EOSINOPHILS % (AUTO) 2 % (1-7); LYMPHOCYTES % (AUTO) 19 % (22-44); MEAN CORPUSCULAR HGB CONC 32.8 g/dL (33.2-36.2); MEAN PLATELET VOLUME 6.6 fL (7.4-10.4); MONOCYTES % (AUTO) 6 % (2-9); NEUTROPHILS % (AUTO) 72 % (42-75); PLATELET COUNT 281 x10^3/uL (130-400); RED BLOOD COUNT 3.14 x10^6/uL (4.38-5.82); RED CELL DISTRIBUTION WIDTH 18.3 % (9.4-14.8)
[2019-12-25 09:33] LABS: MD NO
[2019-12-25 09:40] LABS: ALBUMIN 3.7 g/dL (3.4-5.0); ANION GAP 5 mmol/L (5-15); CALCIUM 8.6 mg/dL (8.5-10.1); CHLORIDE 111 mmol/L (98-107); MICROSCOPIC AUTO
--- NOTE | 2019-12-25 10:06 | NUR ---
ACID TENDER: PT TO ROOM FROM LOBBY
--- NOTE | 2019-12-25 10:09 | NUR ---
ASSUMED CARE OF PT AT THIS TIME. AMBULATORY TO ROOM WITH STEADY GAIT WITH OWN ARM CRTUCH, ACCOMPANIED BY SPOUSE. PT REPORTS "BURNING WHEN I PEE FOR ABOUT 6 DAYS, SOMETIMES DARK RED BLOOD AND CLOUDY SPECS IN MY PEE, I'M GETTING CHEMO AND THIS HAS HAPPENED ONCE BEFORE." DENIES ANY PAIN, ABD PAIN, OR BACK PAIN. HX PROSTATE CANCER. CONT PULSE OX, BP MONITORS APPLIED. VSS. LABS DRAWN AND UA SENT FROM TRIAGE/PIT. AWAITING EVALUATION IN ROOM BY ERP. CALL LIGHT IN REACH. FALL PRECUATIONS IN PLACE. A&OX4.
--- NOTE | 2019-12-25 10:36 | NUR ---
DR. JIMENEZ AT BEDSIDE FOR EVALUATION, DISCUSSING POC AND RESULTS WITH PT
[2019-12-25] MEDS ORDERED: CEFTRIAXONE 1,000 MG ONE ×2 (10:59→11:15)
[2019-12-25] MEDS ORDERED: CEFTRIAXONE 1,000 MG IM ONE (11:00)
[2019-12-25] MEDS ORDERED: LIDOCAINE-MPF 1%, 5ML ONE (11:15)
[2019-12-25 11:20] VITALS: BP 119/69
--- NOTE | 2019-12-25 11:21 | NUR ---
PT MEDICATED NOTED PER MD ORDER. TOLERATED INJECTION WELL. RESTING COMFORTABLY. DENIES NEED TO USE RESTROOM. AWAITING DC PAPERS. CALL LIGHT IN REACH. FALL PRECUATIONS IN PLACE. SPOUSE AT BEDSIDE
--- NOTE | 2019-12-25 11:33 | NUR ---
BEDSIDE REPORT AND CARE OF TRANSFER OF CARE TO [facility] RN AT THIS TIME
== END 2019-12-25 11:38 | disposition home or self-care (01) ==
LOC: ED 10:45
DX: C80.1 Malignant (primary) neoplasm, unspecified (principal); N30.01 Acute cystitis with hematuria; R10.9 Unspecified abdominal pain; R30.0 Dysuria; Z85.46 Personal history of malignant neoplasm of prostate
CPT/HCPCS: 36415; 80048; 81001; 82040; 85025; 87086; 96372; 99283; J0696; 99284

== ENCOUNTER → 2020-01-22 | Outpatient (CLI) | payer MEDICARE ==
[~2020-01-22] MED LIST changes: -MONT10TA11 PO; +MONT10TA96 PO
== END | disposition home or self-care (01) ==
LOC: RAD 10:06
PROVIDERS: ATTEND Specialist
DX: Z51.11 Encounter for antineoplastic chemotherapy (principal); S32.491A Other specified fracture of right acetabulum, initial encounter for closed fracture; C61 Malignant neoplasm of prostate; M21.851 Other specified acquired deformities of right thigh; C79.51 Secondary malignant neoplasm of bone; D70.9 Neutropenia, unspecified; C20 Malignant neoplasm of rectum; D64.9 Anemia, unspecified; Z45.2 Encounter for adjustment and management of vascular access device; Z79.899 Other long term (current) drug therapy; X58.XXXA Exposure to other specified factors, initial encounter; Y93.89 Activity, other specified; Y92.89 Other specified places as the place of occurrence of the external cause; Y99.8 Other external cause status

== ENCOUNTER → 2020-02-10 | Outpatient (CLI) | payer MEDICARE | END | disposition home or self-care (01) | LOC: RAD 16:29 | PROVIDERS: ATTEND Physician Assistant | DX: M47.26 Other spondylosis with radiculopathy, lumbar region (principal); M48.07 Spinal stenosis, lumbosacral region | CPT/HCPCS: 72148 ==

== ENCOUNTER → 2020-03-03 | Outpatient (CLI) | payer MEDICARE | END | disposition home or self-care (01) | LOC: CFH 09:52 | PROVIDERS: ATTEND Physician Assistant | DX: C79.51 Secondary malignant neoplasm of bone (principal) | CPT/HCPCS: 77080 ==

== ENCOUNTER → 2020-03-07 | Outpatient (CLI) | payer MEDICARE | END | disposition home or self-care (01) | LOC: RAD 10:17 | PROVIDERS: ATTEND Specialist | DX: C79.51 Secondary malignant neoplasm of bone (principal); C61 Malignant neoplasm of prostate; C20 Malignant neoplasm of rectum; D70.9 Neutropenia, unspecified ==

== ENCOUNTER → 2020-03-14 | Outpatient (CLI) | payer MEDICARE ==
[~2020-03-14] VITALS: Ht 172.7 cm; Wt 86.4 kg
[~2020-03-14] MED LIST changes: +FERR324T5 PO; +HYDR-1067 PO; -HYDR-3240 PO; +LOPE2TAB28 PO; -OXYC-302 PO; +OXYC1TAB14 PO
[2020-03-14 09:29] LABS: MEAN CORPUSCULAR HEMOGLOBIN 31.3 pg (27.5-34.5); MEAN PLATELET VOLUME 7.9 fL (7.4-10.4); PLATELET COUNT 263 x10^3/uL (130-400); RED BLOOD COUNT 3.02 x10^6/uL (4.38-5.82); RED CELL DISTRIBUTION WIDTH 16.7 % (9.4-14.8)
[2020-03-14 09:35] LABS: CHLORIDE 107 mmol/L (98-107)
[2020-03-14 09:46] LABS: ALANINE AMINOTRANSFERASE 15 U/L (12-78); ALBUMIN 3.7 g/dL (3.4-5.0); ALKALINE PHOSPHATASE 156 U/L (45-117); ANION GAP 7 mmol/L (5-15); BILIRUBIN,TOTAL 0.4 mg/dL (0.2-1.0); CALCIUM 8.8 mg/dL (8.5-10.1); CREATININE 0.83 mg/dL (0.7-1.3); TOTAL PROTEIN 7.5 g/dL (6.4-8.2)
[2020-03-14 09:54] LABS: INTERNATIONAL NORMALIZED RATIO 0.98 (0.93-1.1); PROTHROMBIN TIME 10.4 Seconds (9.6-11.5)
[2020-03-14 10:32] LABS: MD YES
[2020-03-14 10:33] LABS: <PLATELET ESTIMATE> ADEQUATE; <PLT MORPHOLOGY> NORMAL PLT MORPH; BAND#(MANUAL) 0.36 x10^3/uL; BANDS%(MANUAL) 7 % (0-7); BASOS#(MANUAL) 0.05 x10^3/uL (0-0.1); BASOS% (MANUAL) 1 % (0-1); EOS#(MANUAL) 0.05 x10^3/uL (0.0-0.4); EOS% (MANUAL) 1 % (1-7); LYMPH#(MANUAL) 0.77 x10^3/uL (1-3.4); LYMPHS% (MANUAL) 15 % (22-44); MONOS#(MANUAL) 0.26 x10^3/uL (0.3-2.7); MONOS% (MANUAL) 5 % (2-9); SEG#(MANUAL) 3.62 x10^3/uL (1.8-6.8); SEGS% (MANUAL) 71 % (42-75)
[2020-03-14 10:34] LABS: <RBC MORPHOLOGY> NORMAL
== END | disposition home or self-care (01) ==
LOC: STAR 11:00 → EDSTATUS 03-16 10:00
PROVIDERS: ATTEND Neurological Surgery
DX: Z01.818 Encounter for other preprocedural examination (principal); M48.062 Spinal stenosis, lumbar region with neurogenic claudication; Z88.8 Allergy status to other drugs, medicaments and biological substances; Z79.899 Other long term (current) drug therapy; Z20.822 Contact with and (suspected) exposure to COVID-19; Z83.3 Family history of diabetes mellitus; Z82.49 Family history of ischemic heart disease and other diseases of the circulatory system; Z85.46 Personal history of malignant neoplasm of prostate; Z85.048 Personal history of other malignant neoplasm of rectum, rectosigmoid junction, and anus
CPT/HCPCS: 36415; 71046; 80053; 85025; 85610; 85730; 93005; U0003

== ENCOUNTER → 2020-04-21 | Outpatient (CLI) | payer MEDICARE ==
[~2020-04-21] MED LIST changes: +MONT10TA17 PO; -MONT10TA96 PO; +OMNIPAQUE 350 MG/ML, 100ML BOTTLE ONE
== END | disposition home or self-care (01) ==
LOC: CFH 14:24
PROVIDERS: ATTEND Specialist
DX: C79.51 Secondary malignant neoplasm of bone (principal); C61 Malignant neoplasm of prostate; C20 Malignant neoplasm of rectum; K43.9 Ventral hernia without obstruction or gangrene; R91.8 Other nonspecific abnormal finding of lung field; N28.1 Cyst of kidney, acquired; N13.30 Unspecified hydronephrosis; D70.9 Neutropenia, unspecified; D64.9 Anemia, unspecified; R59.0 Localized enlarged lymph nodes; M84.48XA Pathological fracture, other site, initial encounter for fracture
CPT/HCPCS: 71260; 74177; Q9967

== ENCOUNTER → 2020-06-13 | Outpatient (CLI) | payer MEDICARE ==
[~2020-06-13] MED LIST changes: -HYDR-1067 PO; +HYDR-2214 PO
== END | disposition home or self-care (01) ==
LOC: CFH 08:43
PROVIDERS: ATTEND Specialist
DX: C79.51 Secondary malignant neoplasm of bone (principal); C61 Malignant neoplasm of prostate; C20 Malignant neoplasm of rectum; R91.8 Other nonspecific abnormal finding of lung field; N13.30 Unspecified hydronephrosis; R59.1 Generalized enlarged lymph nodes; K43.9 Ventral hernia without obstruction or gangrene; M84.48XA Pathological fracture, other site, initial encounter for fracture
CPT/HCPCS: 71260; 74177; Q9967

== ENCOUNTER 2020-08-16 12:22 | Emergency (ER) | payer MEDICARE ==
[~2020-08-16] VITALS: Ht 172.7 cm; Wt 81.0 kg
[~2020-08-16 12:22] MED LIST changes: -OMNIPAQUE 350 MG/ML, 100ML BOTTLE ONE
[2020-08-16] MEDS ORDERED: SODIUM CHLORIDE 0.9% 1,000ML IVBOLUS ONE (13:30)
[2020-08-16] MEDS ORDERED: SODIUM CHLORIDE FLUSH 10ML SYR IVF ONE (13:30)
[2020-08-16 13:37] LABS: BASOPHILS % (AUTO) 0 % (0-1); EOSINOPHILS % (AUTO) 3 % (1-7); LYMPHOCYTES % (AUTO) 33 % (22-44); MEAN CORPUSCULAR HEMOGLOBIN 31.6 pg (27.5-34.5); MEAN CORPUSCULAR HGB CONC 32.9 g/dL (33.2-36.2); MEAN PLATELET VOLUME 6.2 fL (7.4-10.4); MONOCYTES % (AUTO) 1 % (2-9); NEUTROPHILS % (AUTO) 62 % (42-75); PLATELET COUNT 285 x10^3/uL (130-400); RED BLOOD COUNT 3.24 x10^6/uL (4.38-5.82); RED CELL DISTRIBUTION WIDTH 17.5 % (9.4-14.8)
[2020-08-16 13:49] LABS: ALBUMIN 3.3 g/dL (3.4-5.0); ANION GAP 6 mmol/L (5-15); CALCIUM 9.1 mg/dL (8.5-10.1); CHLORIDE 106 mmol/L (98-107)
[2020-08-16 13:55] LABS: ALANINE AMINOTRANSFERASE 16 U/L (12-78); ALKALINE PHOSPHATASE 141 U/L (45-117); BILIRUBIN,TOTAL 0.3 mg/dL (0.2-1.0); CREATININE 0.79 mg/dL (0.7-1.3); TOTAL PROTEIN 7.9 g/dL (6.4-8.2)
[2020-08-16 15:07] LABS: FREE T4 (FREE THYROXINE) 0.93 ng/dL (0.76-1.46)
[2020-08-16 15:21] LABS: MICROSCOPIC AUTO
[2020-08-16 16:19] VITALS: BP 125/71
== END 2020-08-16 17:19 | disposition home or self-care (01) ==
LOC: ED 16:17
DX: R42 Dizziness and giddiness (principal); I95.1 Orthostatic hypotension; E86.0 Dehydration; R94.31 Abnormal electrocardiogram [ECG] [EKG]; Z85.038 Personal history of other malignant neoplasm of large intestine
CPT/HCPCS: 36415; 80053; 81001; 83605; 84439; 84443; 85025; 93005; 96360; 96361; 99284; J7030

== ENCOUNTER → 2020-09-28 | Outpatient (CLI) | payer MEDICARE ==
[~2020-09-28] MED LIST changes: +GADOTERATE 7.5 MMOL/15ML SYR ONE; +OMNIPAQUE 350 MG/ML, 100ML BOTTLE ONE
== END | disposition home or self-care (01) ==
LOC: RAD 08:52
PROVIDERS: ATTEND Specialist
DX: C79.51 Secondary malignant neoplasm of bone (principal); C61 Malignant neoplasm of prostate; C20 Malignant neoplasm of rectum; R94.02 Abnormal brain scan; R59.0 Localized enlarged lymph nodes; M84.459A Pathological fracture, hip, unspecified, initial encounter for fracture
CPT/HCPCS: 70553; 71260; 74177; 78306; A9503; A9575; Q9967